=== PATIENT | female | born 1945 | race Caucasian/White ===

== ENCOUNTER → 2024-05-17 10:34 | Outpatient (REF) | payer MEDICARE, OTHER, SELFPAY ==
[2024-05-17 11:58] LABS: Free T4 1.14 ng/dl (0.78-2.19)
[2024-05-17 12:12] LABS: TSH 1.02 uIU/ml (0.47-4.68)
== END ==
LOC: OLABWPC 10:34
PROVIDERS: ATTENDING PHYSICIAN Internal Medicine Endocrinology, Diabetes & Metabolism
DX: E03.9 Hypothyroidism, unspecified (principal)
CPT/HCPCS: 36415; 84439; 84443

== ENCOUNTER 2024-07-20 03:33 | Emergency (ER) | payer MEDICARE, OTHER, SELFPAY ==
[2024-07-20 03:36] VITALS: BP 109/71
[2024-07-20 03:43] VITALS: BMI 29.9
[2024-07-20 04:00] VITALS: BP 105/51
--- NOTE | 2024-07-20 04:50 | ED.GENMED ---
History of Present Illness
General
Chief Complaint: Bowel Problem
Source: patient and [facility]ci
Exam Limitations: none
Time Seen by Provider: 07/20/24 04:25
History of Present Illness
History of Present Illness:
This is a 79-year-old woman who resides at assisted living facility. She has history of intermittent constipation and complains of severe constipation, passing last bowel movement perhaps 3 days ago. This morning she developed lower abdominal
discomfort, pressure as well as significant rectal pressure with inability to pass a bowel movement. She denies nausea nor vomiting, no fever no chills, no difficulty urinating, no dysuria nor urgency nor urinary frequency.
She admits to similar symptoms with previous episodes of constipation.
Past History
Past History
ED Past Medical History: Cancer (thyroid), Hypothyroidism, Psychiatric (a/d, pannic attacks) and Other (OA, constipation)
ED Past Surgical History: Tonsilectomy and Other (thyroidectomy)
Social History
Tobacco: Non-smoker
Alcohol: None
Personal:
Living: assisted living
Employment: Retired
Family History
Family History: Other (Noncontributory)
Phy Exam
Physical Exam
Physical Exam:
GENERAL: 79-year-old woman appears her stated age, awake and alert, appears in mild distress, lying on her right side. Easily communicative. Vital signs within normal limits.
EYE: anicteric
NECK: Supple, nontender, no meningismus, no significant adenopathy.
ENT: oral mucosa is moist. No rhinorrhea.
CARDIAC: Regular rate and rhythm. no murmur.
LUNGS: Clear breath sounds bilaterally, no acute respiratory distress, no wheezes/rales/rhonchi
ABDOMEN: Soft, nondistended, mild tenderness with deep palpation only suprapubic region, no palpable masses, no r/g, no cvat. normoactive BS. Rectal exam reveals firm marble-like stool within the upper rectum. Heme-negative. Unable to digitally
disimpact.
NEUROLOGICAL: Alert and oriented x3, no focal neuro deficits.
SKIN: Warm and dry, normal color, skin intact. No rash.
MUSCULOSKELETAL: No C/C/E. peripheral pulses are full and equal b/l. No palpable tenderness.
PSYCH: Normal and appropriate interaction.
Course
Orders/Labs/Results
Orders:
Orders
07/20/24 04:21
Abdomen Xray - 1 View [CR Abdomen - 1 View] Urgent
Comment:
Reason For Exam: constipation
07/20/24 04:49
Enema- Treatment ONCE
Type: Milk of Molasses
Vital Signs
Initial and Last Documented VS:
Initial Vital Signs
Temp Pulse BP Pulse Ox
98.6 F 76 109/71 98
07/20/24 03:36 07/20/24 03:36 07/20/24 03:36 07/20/24 03:36
Last Documented Vital Signs
Temp Pulse BP Pulse Ox
98.6 F 76 105/51 99
07/20/24 03:36 07/20/24 03:36 07/20/24 04:00 07/20/24 04:30
MDM/Problems Addressed
Differential Diagnosis Includes:
Concern for recurrent constipation, other consideration is bowel obstruction.
Will check abdominal x-ray and if noted to be constipated will trial an enema.
Unsuccessful with digital disimpaction, firm/hard stool is too high in the rectum.
*Radiology
Radiology exam reviewed: preliminary read by ED provider (X-ray shows moderate firm stool within the rectum. No evidence of obstruction.)
*Pulse Oximetry
Patient hypoxic: no
*Critical Care Note
Total Time (30-74mins, 75-104mins- exclusive of procedures): Not Applicable
Update Note
Update Note:
06:40
After receiving an enema patient has passed a large firm stool with relief of abdominal pain, relief of rectal pressure.
Abdomen is soft without vertebral tenderness.
She is prescribed MiraLAX for as needed use. Recommend she take this on a daily basis.
Will discharge back to [facility] for continued care.
ED Attending Note
-
Portions of this chart may have been created with voice recognition software.� Occasional wrong word or��sound alike� substitutions may have occurred due to the inherent limitations of voice recognition software.
Discharge Plan
Departure
Patient Disposition: Custodial/SNF
Date of Disposition: 07/20/24
Time of Disposition: 06:42
Patient with high blood pressure during this ER visit?: No
Condition: Good
Discharge Problem:
Fecal impaction in rectum
Instructions: Constipation, Adult (DC), Fecal Impaction (DC)
Prescriptions:
No Action
carisoprodol [Soma] 350 MG tablet
350 mg PO PRN PRN (Reason: pain)
levothyroxine [Levoxyl] 100 MCG tablet
100 mcg PO DAILY
lorazepam 0.5 MG tablet
0.5 mg PO DAILYPRN PRN (Reason: amxiety)
docusate sodium 100 MG capsule
100 mg PO DAILYPRN PRN (Reason: constipation)
fluoxetine 20 MG capsule
20 mg PO BID
alprazolam 0.25 MG tablet
0.25 mg PO Q4HPRN PRN (Reason: anxiety)
Referrals:
Puneet Deras MD [Family Provider] - Call in 1-3 days for appt
Activity Restrictions/Additional Instructions:
Resume MiraLAX and take this on a daily basis.
Interventions
Interventions:
*Risk Screen - Suicide Last Done: 07/20/24 03:36
*General Assessment Last Done: 07/20/24 03:44
*Neglect/Abuse Screening Last Done: 07/20/24 03:45
ED- Fall Risk Assessment Last Done: 07/20/24 03:45
*ED COVID-19 Vaccine History Last Done: 07/20/24 03:44
NP-Qgnnjg-Setpqqrjer Assessment Last Done: 07/20/24 03:50
Discharge Date and Time
Print Language: DANISH
[2024-07-20 08:25] VITALS: BP 113/74
[2024-07-20] MEDS: ATIVAN 0.5 MG PO (08:47)
== END 2024-07-20 09:18 ==
LOC: EMR 03:33
PROVIDERS: EMERGENCY PHYSICIAN Emergency Medicine; FAMILY PHYSICIAN Internal Medicine
DX: K56.41 Fecal impaction (principal); R10.30 Lower abdominal pain, unspecified; F41.0 Panic disorder [episodic paroxysmal anxiety]; M19.90 Unspecified osteoarthritis, unspecified site; E89.0 Postprocedural hypothyroidism; Z85.850 Personal history of malignant neoplasm of thyroid; Z91.041 Radiographic dye allergy status
CPT/HCPCS: 99283; 51798; 74018

== ENCOUNTER → 2024-08-16 10:15 | Outpatient (REF) | payer MEDICARE, OTHER, SELFPAY ==
[2024-08-16 12:29] LABS: Blood Urea Nitrogen 27 mg/dl (7-17); Calcium 11.3 mg/dl (8.4-10.2); Carbon Dioxide 27 mmol/L (22-30); Chloride 101 mmol/L (98-107); Glucose 107 mg/dl (70-99); Potassium 4.2 mmol/L (3.5-5.1); Sodium 137 mmol/L (135-145); eGFR 51.43
== END ==
LOC: OLABWPC 10:15
PROVIDERS: ATTENDING PHYSICIAN Nurse Practitioner Family
DX: E78.2 Mixed hyperlipidemia (principal); E03.9 Hypothyroidism, unspecified
CPT/HCPCS: 36415; 80048

== ENCOUNTER → 2025-05-28 10:25 | Outpatient (REF) | payer MEDICARE, OTHER, SELFPAY ==
[2025-05-28 11:09] LABS: Blood Urea Nitrogen 18 mg/dl (7-17); Calcium 10.2 mg/dl (8.4-10.2); Carbon Dioxide 28 mmol/L (22-30); Chloride 103 mmol/L (98-107); Glucose 83 mg/dl (70-99); Potassium 4.0 mmol/L (3.5-5.1); Sodium 138 mmol/L (135-145); eGFR 51.43
[2025-05-28 11:22] LABS: Hematocrit 41.3 % (37.0-47.0); Hemoglobin 13.5 g/dL (12.0-16.0); Mean Corp Hgb Conc. 32.7 g/dL (33.0-37.0); Mean Corpuscular Volume 87.7 fL (81.0-99.0); Nucleated Red Blood Cells % 0 %; Platelet Count 231 10^3/uL (130-400); Red Cell Dist. Width 13.4 % (11.5-14.5)
[2025-05-28 11:40] LABS: TSH 4.12 uIU/ml (0.47-4.68)
== END ==
LOC: OLABWPC 10:25
PROVIDERS: ATTENDING PHYSICIAN Internal Medicine
DX: E03.9 Hypothyroidism, unspecified (principal); Z85.850 Personal history of malignant neoplasm of thyroid; E78.2 Mixed hyperlipidemia
CPT/HCPCS: 36415; 80048; 84443; 85025

== ENCOUNTER 2025-06-04 07:48 | Emergency (ER) | payer MEDICARE, OTHER, SELFPAY ==
[2025-06-04] VITALS (9 sets, daily range): BP systolic 95–157; BP diastolic 74–82; BMI 32.0
[2025-06-04 08:13] LABS: Hematocrit 41.5 % (37.0-47.0); Hemoglobin 13.9 g/dL (12.0-16.0); Mean Corp Hgb Conc. 33.5 g/dL (33.0-37.0); Mean Corpuscular Volume 84.5 fL (81.0-99.0); Nucleated Red Blood Cells % 0 %; Platelet Count 242 10^3/uL (130-400); Red Cell Dist. Width 13.5 % (11.5-14.5)
[2025-06-04 08:31] LABS: ALT (SGPT) 26 U/L (0-35); AST (SGOT) 25 U/L (14-36); Albumin 4.5 g/dl (3.5-5.0); Alkaline Phosphatase 73 U/L (38-126); Blood Urea Nitrogen 20 mg/dl (7-17); Calcium 11.2 mg/dl (8.4-10.2); Carbon Dioxide 27 mmol/L (22-30); Chloride 103 mmol/L (98-107); Glucose 104 mg/dl (70-99); Lipase 114 U/L (23-300); Potassium 4.2 mmol/L (3.5-5.1); Sodium 138 mmol/L (135-145); Total Protein 6.9 g/dl (6.3-8.2); eGFR 46.33
--- NOTE | 2025-06-04 09:14 | ED.GENMED ---
History of Present Illness
General
Chief Complaint: Anxiety
Source: patient and spouse
Time Seen by Provider: 06/04/25 09:13
Nursing documentation reviewed up to this point in time: agreed with
History of Present Illness
History of Present Illness:
79 yo female from [facility], with h/o diverticulitis, thyroidectomy for CA, Anxiety, Panic disorder, depression presents via EMS. In room on initial exam pt stating 'I don't know why I'm so sick...I'm so confused...I feel sick to my
stomach...I hurt all over.' Tremulous, tearful, oriented to place, name year, cannot state month or president. Admits to feeling nauseous and having chest tightness. Denies SOB, abd pain. Denies UTI symptoms. Denies headache.
Pt stating 'I don't know' where her is, can't remember if she came by ambulance or not. Can't remember her address or 's phone number, states they recently moved.
Spoke with who stated 'she gets like this, she takes some anxiety pills in the morning.' Some days she's very good and some days are like this.' She is forgetting things, she starts crying, the [[facility]]staff gives her stuff.' 'We sleep in
separate bedrooms and she came in my bedroom this morning saying 'I don't want you here and she was flipped out.'
She could not remember whether or not she took her pills. She gets 'pain from her throat all the way down to her bellybutton, like an antacid thing that really bothers here.' Reports that she gets up frequently in the middle of the night to sit up
due to this.
Past History
Past History
ED Past Medical History: Cancer (thyroid), Hypothyroidism, Psychiatric (a/d, panic attacks) and Other (OA, constipation)
ED Past Surgical History: Tonsilectomy and Other (thyroidectomy)
Social History
Tobacco: Non-smoker
Alcohol: None
Personal:
Living: assisted living
Employment: Retired
Family History
Family History: Other (Noncontributory)
Review of Systems
Review of Systems
Allergies reviewed?: Yes
All Other Systems: ROS reviewed and negative except as documented in HPI and ROS
Phy Exam
Physical Exam
Physical Exam:
GENERAL: No acute distress. A&Ox2. oriented to place, name year, cannot state month or president. Cannot remember how she got here
CONSTITUTIONAL: Afebrile.
EYES: clear, conjunctivae normal
ENMT: moist mucus membranes, Pharynx nl
RESPIRATORY: Regular respirations, nonlabored, lungs clear.
CARDIOVASCULAR: Regular rate and rhythm, no murmurs, no rubs.
GI: Soft, nontender, normal BS
MUSCULOSKELETAL: Moves with ease. Well perfused. No edema
SKIN: Warm, dry, pink
PSYCH: Anxious, tearful mood and affect. Well kept, interactive.
NEUROLOGIC: Awake, alert and oriented x 2. No focal neurological deficits
Course
Orders/Labs/Results
Orders:
Orders
06/04/25 07:58
Complete Blood Count/With Diff Urgent
Comprehensive Metabolic Panel Urgent
Free T4 Urgent
Lipase Urgent
TSH Reflex To Free T4 Urgent
06/04/25 08:53
Add On- LAB Urgent
Tests Added?: TSH reflex T4
06/04/25 09:24
Electrocardiogram (*1) Urgent
Reason for Study: Chest Pain
EKG- Treatment ONCE
06/04/25 09:59
Crisis Consult Urgent
Reason for Consult: anxiety, tearful, forgetful
06/04/25 11:15
Troponin I Urgent
Urinalysis Reflex To Culture Urgent
Date Specimen was Collected: 06/04/25
Time Specimen was Collected: 11:13
Urine Microscopic Reflex Cult Urgent
06/04/25 12:17
CT Abd/pel Without Iv Or Oral Urgent
Comment:
Reason For Exam: hematuria, abd pain, dementia
06/04/25 13:28
Mag Hydrox/Al Hydrox/Simeth [Maalox] 30 ml PO NOW STA
Pantoprazole [Protonix IV] 80 mg IV NOW STA
Abnormal Lab Results
06/04/25 06/04/25
07:58 11:15
Absolute Monos (auto) 0.7 H 10^3/uL
(0.1-0.6)
Monocytes % 13.6 H %
(1.7-9.3)
BUN 20 H mg/dl
(7-17)
Creatinine 1.2 H mg/dL
(0.6-1.0)
Glucose 104 H mg/dl
(70-99)
Calcium 11.2 H mg/dl
(8.4-10.2)
TSH (Reflex) 7.61 H uIU/ml
(0.47-4.68)
Ur Occult Blood Reflex 3+ A
(Negative)
Urine RBC 7-10 A /HPF
(0-2)
Urine Bacteria (Reflex) Few A
(Negative)
06/04/25 07:58
06/04/25 07:58
Vital Signs
Initial and Last Documented VS:
Initial Vital Signs
Temp Pulse Resp BP Pulse Ox
97.8 F 67 24 134/77 98
06/04/25 07:53 06/04/25 07:53 06/04/25 07:53 06/04/25 07:53 06/04/25 07:53
Last Documented Vital Signs
Temp Pulse Resp BP Pulse Ox
97.8 F 82 20 157/78 99
06/04/25 07:53 06/04/25 11:00 06/04/25 11:00 06/04/25 11:00 06/04/25 11:01
Telemarketing Fundraiser consulted with Physician
Telemarketing Fundraiser consulted with physician?: Yes
Name of Physician Consulted: John
MDM/Problems Addressed
MDM/Problems Addressed:
79 yo female from [facility], with h/o diverticulitis, thyroidectomy for CA, Anxiety, Panic disorder, depression presents via EMS. In room on initial exam pt stating 'I don't know why I'm so sick...I'm so confused...I feel sick to my
stomach...I hurt all over.' Tremulous, tearful, oriented to place, name year, cannot state month or president. Admits to feeling nauseous and having chest tightness. Denies SOB, abd pain. Denies UTI symptoms. Denies headache.
Pt stating 'I don't know' where her is, can't remember if she came by ambulance or not. Can't remember her address or 's phone number, states they recently moved.
Spoke with who stated 'she gets like this, she takes some anxiety pills in the morning.' Some days she's very good and some days are like this.' She is forgetting things, she starts crying, the [[facility]]staff gives her stuff.' 'We sleep in
separate bedrooms and she came in my bedroom this morning saying 'I don't want you here and she was flipped out.'
She could not remember whether or not she took her pills. She gets 'pain from her throat all the way down to her bellybutton, like an antacid thing that really bothers here.' Reports that she gets up frequently in the middle of the night to sit up
due to this.
Afebrile, Tearful, forgetful
CBC, CMP with no clinically significant abnormality.
EKG: NSR
Crisis in
U/A : 3+ occult blood, 7-10 RBC otherwise unremarkable.
Due to dementia and 's concern we will obtain CT abdomen pelvis plain to rule out kidney stone
Abdomen benign
4:00 PM:
Pt is eating full lunch
home health care worker in. States she spoke with who stated his concern mainly was that she was having pain in throat and stomach. She never wants to come to the hospital and today she was asking to come.
Hx Out pt visits [facility] out pt. Jomar Mix Lyudmila-Psyche a couple of years ago. If she's calmer, he is comfortable taking her back home.
1:[address] abd/pelvis plain radiology report read: No hydronephrosis. No renal calculi. Moderate colonic stool burden. Small/moderate hiatal hernia.
After eating sandwich, apple sauce, apple juice, kervin hieu, pt asked RN for 'something for my indigestion.' Maalox and Protonix ordered
Crisis is waiting for to arrive as he mention lyudmila psyche and pt wants him here to discuss.
2:30 p.m.
TSH 7.61
Son is taking pt home. She is calm and pleasant.
Son will notify PCP of TSH
*Pulse Oximetry
SaO2: 98
Oxygen Mode of Delivery: Room air
Patient hypoxic: no
*EKG
EKG Intrepretation Date: 06/04/25
Interpretation: normal
Heart Rate: 77
Rate: normal
Rhythm: sinus
[place]: normal axis
Interval: normal interval
QRS Pattern: normal QRS
Ischemia: non-specific ST changes
*Critical Care Note
Total Time (30-74mins, 75-104mins- exclusive of procedures): Not Applicable
ED Attending Note
-
Portions of this chart may have been created with voice recognition software.� Occasional wrong word or��sound alike� substitutions may have occurred due to the inherent limitations of voice recognition software.
Discharge Plan
Departure
Patient Disposition: Home (Routine Discharge)
Date of Disposition: 06/04/25
Time of Disposition: 14:37
Patient with high blood pressure during this ER visit?: No
Condition: Good
Discharge Problem:
GERD (gastroesophageal reflux disease), Anxiety
Instructions: Anxiety, Adult (DC), Acid reflux and GERD in adults, Constipation in adults - ED (DC)
Prescriptions:
New
pantoprazole [Protonix] 40 mg tablet,delayed release (DR/EC)
40 mg PO DAILY Qty: 30 0RF
No Action
carisoprodol [Soma] 350 MG tablet
350 mg PO PRN PRN (Reason: pain)
levothyroxine [Levoxyl] 100 MCG tablet
100 mcg PO DAILY
lorazepam 0.5 MG tablet
0.5 mg PO DAILYPRN PRN (Reason: amxiety)
docusate sodium 100 MG capsule
100 mg PO DAILYPRN PRN (Reason: constipation)
fluoxetine 20 MG capsule
20 mg PO BID
alprazolam 0.25 MG tablet
0.25 mg PO Q4HPRN PRN (Reason: anxiety)
Referrals:
Adalberto Murphy MD [Active, Gastroenterology] - Next open appointment
UNKNOWN - PT NOT,INTERVIEWE [Family Provider]
Activity Restrictions/Additional Instructions:
As we discussed, take Protonix daily starting tomorrow you were given a dose here today. We are treating you for indigestion/reflux.
Call and make the appointment with his GI doctor as you may need an upper endoscopy
Eat a balance diet, drink plenty of water.
Avoid eating for one hour before bedtime to avoid reflux chest pains while you are laying down
Interventions
Interventions:
*Risk Screen - Suicide Last Done: 06/04/25 07:51
*General Assessment Last Done: 06/04/25 11:01
*Neglect/Abuse Screening Last Done: 06/04/25 11:01
*ED- Fall Risk Assessment Last Done: 06/04/25 11:01
*ED COVID-19 Vaccine History Last Done: 06/04/25 11:01
*ED Influenza Vaccine History Last Done: 06/04/25 11:01
ED-Psychological Assessment Last Done: 06/04/25 11:01
Discharge Date and Time
Print Language: LITHUANIAN
[2025-06-04 11:27] LABS: Urine Character Clear (Clear)
[2025-06-04 11:59] LABS: Troponin I < 0.012 ng/ml
[2025-06-04] MEDS: MAALOX 30 ML PO (13:33)
[2025-06-04] MEDS: PROTONIX IV 80 MG IV (13:33)
--- NOTE | 2025-06-04 14:55 | EDRN ---
Reviewed discharge instructions with patient and her son. Verbalized understanding. Taken to car in wheelchair.
== END 2025-06-04 15:00 | disposition home or self-care (01) ==
LOC: EMR 07:48
PROVIDERS: Emergency Medicine; Registered Nurse; EMERGENCY PHYSICIAN Emergency Medicine
DX: K21.9 Gastro-esophageal reflux disease without esophagitis (principal); F41.9 Anxiety disorder, unspecified; K44.9 Diaphragmatic hernia without obstruction or gangrene; F03.90 Unspecified dementia, unspecified severity, without behavioral disturbance, psychotic disturbance, mood disturbance, and anxiety; F32.A Depression, unspecified; E89.0 Postprocedural hypothyroidism; F41.0 Panic disorder [episodic paroxysmal anxiety]; M19.90 Unspecified osteoarthritis, unspecified site; Z85.850 Personal history of malignant neoplasm of thyroid
CPT/HCPCS: 99284; 96374; 74176; 80053; 81003; 81015; 83690; 84439; 84443; 84484; 85025; 93005

== ENCOUNTER 2025-06-15 16:45 | Emergency (ER) | payer MEDICARE, OTHER, SELFPAY ==
[2025-06-15 16:48] VITALS: BP 114/62
[2025-06-15 17:08] LABS: Hematocrit 41.3 % (37.0-47.0); Hemoglobin 13.6 g/dL (12.0-16.0); Mean Corp Hgb Conc. 32.9 g/dL (33.0-37.0); Mean Corpuscular Volume 86.6 fL (81.0-99.0); Nucleated Red Blood Cells % 0 %; Platelet Count 253 10^3/uL (130-400); Red Cell Dist. Width 13.8 % (11.5-14.5)
[2025-06-15 17:28] LABS: ALT (SGPT) 21 U/L (0-35); AST (SGOT) 23 U/L (14-36); Albumin 4.4 g/dl (3.5-5.0); Alkaline Phosphatase 58 U/L (38-126); Blood Urea Nitrogen 19 mg/dl (7-17); Calcium 10.0 mg/dl (8.4-10.2); Carbon Dioxide 25 mmol/L (22-30); Chloride 102 mmol/L (98-107); Glucose 89 mg/dl (70-99); Potassium 4.2 mmol/L (3.5-5.1); Sodium 134 mmol/L (135-145); Total Protein 6.8 g/dl (6.3-8.2); eGFR 46.33
[2025-06-15 17:38] LABS: Troponin I 0.022 ng/ml
[2025-06-15] MEDS: MAALOX 50 PO (19:22)
[2025-06-15 19:30] VITALS: BP 109/55
--- NOTE | 2025-06-15 19:49 | ED.GENMED ---
History of Present Illness
<Leanne Raymond, [employer] - Last Filed: 06/17/25 14:41>
General
Chief Complaint: Chest Pain
Source: patient
Exam Limitations: none
Time Seen by Provider: 06/15/25 19:14
Nursing documentation reviewed up to this point in time: agreed with
History of Present Illness
History of Present Illness:
79-year-old female from [facility] presents for significant burning pain up and down her chest 'from my stomach all the way up to my neck. She does have a history of GERD and is on pantoprazole 40 mg at bedtime for GERD that was ordered
on 01/29/2025 and actually is due to be discontinued today. She did have a dose today. She denies fever or chills, denies N/V/D, she does have intermittent constipation. She denies shortness of breath.
Past History
<Leanne Raymond, [employer] - Last Filed: 06/17/25 14:41>
Past History
ED Past Medical History: Cancer (thyroid), Hypothyroidism, Psychiatric (a/d, panic attacks) and Other (OA, constipation)
ED Past Surgical History: Tonsilectomy and Other (thyroidectomy)
Social History
Tobacco: Non-smoker
Alcohol: None
Personal:
Living: assisted living
Employment: Retired
Family History
Family History: Other (Noncontributory)
Review of Systems
<Leanne Raymond, [employer] - Last Filed: 06/17/25 14:41>
Review of Systems
Allergies reviewed?: Yes
All Other Systems: ROS reviewed and negative except as documented in HPI and ROS
Phy Exam
<Leanne Raymond, [employer] - Last Filed: 06/17/25 14:41>
Physical Exam
Physical Exam:
GENERAL: No acute distress. A&Ox3.
CONSTITUTIONAL: Afebrile.
EYES: clear, conjunctivae normal
ENMT: moist mucus membranes, Pharynx nl
RESPIRATORY: Regular respirations, nonlabored, lungs clear.
CARDIOVASCULAR: Regular rate and rhythm, no murmurs, no rubs.
GI: Soft, nontender, normal BS
MUSCULOSKELETAL: Moves with ease. Well perfused.
SKIN: Warm, dry, pink
PSYCH: Anxious mood and affect. Well kept, interactive and appropriate
NEUROLOGIC: Awake, alert and oriented. No focal neurological deficits
Scores
<CLAYTON Mims - Last Filed: 06/17/25 14:39>
Heart Score for Chest Pain Patients
STEMI patient?: Not applicable
Course
<Leanne Raymond [employer] - Last Filed: 06/17/25 14:41>
Orders/Labs/Results
Orders:
Orders
06/15/25 16:53
Electrocardiogram (*1) Urgent
Reason for Study: Chest Pain
EKG- Treatment ONCE
06/15/25 16:58
CMP [Comprehensive Metabolic Panel] Urgent
Complete Blood Count/With Diff Urgent
Troponin I Urgent
06/15/25 19:15
Mag Hydrox/Al Hydrox/Simeth [Maalox] 30 ml Phenobarb/Hyoscy/Atropine/Scop [] 10 ml Viscous Lidocaine 2% [Xylocaine Viscous Cup] 10 ml PO NOW
06/15/25 19:21
Phenobarb/Hyoscy/Atropine/Scop [] 10 ml .ROUTE .STK-MED ONE
06/15/25 19:22
Mag Hydrox/Al Hydrox/Simeth [Maalox] 30 ml .ROUTE .STK-MED ONE
Viscous Lidocaine 2% [Xylocaine Viscous Cup] 15 ml .ROUTE .STK-MED ONE
06/15/25 21:33
Lorazepam [Ativan] 0.5 mg PO NOW STA
06/15/25 21:40
Sucralfate [Carafate] 1 gram PO NOW STA
06/15/25 21:47
Crisis Consult Urgent
Reason for Consult: discharge planning, pt extremely anxious, tearful
Comment: Has been at [facility] in past for this, unable to DC home now
06/15/25 22:44
Troponin I Urgent
06/15/25 23:09
Diphenhydramine [Benadryl] 50 mg IV NOW STA
Hydrocortisone Sod Succinate [Solu-Cortef] 200 mg IV NOW STA
06/16/25 00:20
Ct Chest/Abd/Pel Angio W/Wo Iv Urgent
Reason For Exam: chest, abdominal pain
Abnormal Lab Results
06/15/25
16:58
MCHC 32.9 L g/dL
(33.0-37.0)
Monocytes % 11.6 H %
(1.7-9.3)
Sodium 134 L mmol/L
(135-145)
BUN 19 H mg/dl
(7-17)
Creatinine 1.2 H mg/dL
(0.6-1.0)
06/15/25 16:58
06/15/25 16:58
Vital Signs
Initial and Last Documented VS:
Initial Vital Signs
Temp Pulse Resp BP Pulse Ox
98.2 F 75 20 114/62 98
06/15/25 16:48 06/15/25 16:48 06/15/25 16:48 06/15/25 16:48 06/15/25 16:48
Last Documented Vital Signs
Temp Pulse Resp BP Pulse Ox
98.1 F 72 20 113/79 96
06/15/25 23:36 06/16/25 03:57 06/16/25 03:57 06/16/25 03:57 06/16/25 03:57
Assistant Reading Teacher consulted with Physician
Assistant Reading Teacher consulted with physician?: Yes
Name of Physician Consulted: Matteo
<Paco Stewart, DO - Last Filed: 06/15/25 23:47>
Orders/Labs/Results
Orders:
Orders
06/15/25 16:53
Electrocardiogram (*1) Urgent
Reason for Study: Chest Pain
EKG- Treatment ONCE
06/15/25 16:58
CMP [Comprehensive Metabolic Panel] Urgent
Complete Blood Count/With Diff Urgent
Troponin I Urgent
06/15/25 19:15
Mag Hydrox/Al Hydrox/Simeth [Maalox] 30 ml Phenobarb/Hyoscy/Atropine/Scop [] 10 ml Viscous Lidocaine 2% [Xylocaine Viscous Cup] 10 ml PO NOW
06/15/25 19:21
Phenobarb/Hyoscy/Atropine/Scop [] 10 ml .ROUTE .STK-MED ONE
06/15/25 19:22
Mag Hydrox/Al Hydrox/Simeth [Maalox] 30 ml .ROUTE .STK-MED ONE
Viscous Lidocaine 2% [Xylocaine Viscous Cup] 15 ml .ROUTE .STK-MED ONE
06/15/25 21:33
Lorazepam [Ativan] 0.5 mg PO NOW STA
06/15/25 21:40
Sucralfate [Carafate] 1 gram PO NOW STA
06/15/25 21:47
Crisis Consult Urgent
Reason for Consult: discharge planning, pt extremely anxious, tearful
Comment: Has been at [facility] in past for this, unable to DC home now
06/15/25 22:44
Troponin I Urgent
06/15/25 23:09
Diphenhydramine [Benadryl] 50 mg IV NOW STA
Hydrocortisone Sod Succinate [Solu-Cortef] 200 mg IV NOW STA
06/16/25 00:20
Ct Chest/Abd/Pel Angio W/Wo Iv Urgent
Reason For Exam: chest, abdominal pain
Abnormal Lab Results
06/15/25
16:58
MCHC 32.9 L g/dL
(33.0-37.0)
Monocytes % 11.6 H %
(1.7-9.3)
Sodium 134 L mmol/L
(135-145)
BUN 19 H mg/dl
(7-17)
Creatinine 1.2 H mg/dL
(0.6-1.0)
06/15/25 16:58
06/15/25 16:58
Vital Signs
Initial and Last Documented VS:
Initial Vital Signs
Temp Pulse Resp BP Pulse Ox
98.2 F 75 20 114/62 98
06/15/25 16:48 06/15/25 16:48 06/15/25 16:48 06/15/25 16:48 06/15/25 16:48
Last Documented Vital Signs
Temp Pulse Resp BP Pulse Ox
98.1 F 72 20 113/79 96
06/15/25 23:36 06/16/25 03:57 06/16/25 03:57 06/16/25 03:57 06/16/25 03:57
<CLAYTON Mims - Last Filed: 06/17/25 14:39>
Orders/Labs/Results
Orders:
Orders
06/15/25 16:53
Electrocardiogram (*1) Urgent
Reason for Study: Chest Pain
EKG- Treatment ONCE
06/15/25 16:58
CMP [Comprehensive Metabolic Panel] Urgent
Complete Blood Count/With Diff Urgent
Troponin I Urgent
06/15/25 19:15
Mag Hydrox/Al Hydrox/Simeth [Maalox] 30 ml Phenobarb/Hyoscy/Atropine/Scop [] 10 ml Viscous Lidocaine 2% [Xylocaine Viscous Cup] 10 ml PO NOW
06/15/25 19:21
Phenobarb/Hyoscy/Atropine/Scop [] 10 ml .ROUTE .STK-MED ONE
06/15/25 19:22
Mag Hydrox/Al Hydrox/Simeth [Maalox] 30 ml .ROUTE .STK-MED ONE
Viscous Lidocaine 2% [Xylocaine Viscous Cup] 15 ml .ROUTE .STK-MED ONE
06/15/25 21:33
Lorazepam [Ativan] 0.5 mg PO NOW STA
06/15/25 21:40
Sucralfate [Carafate] 1 gram PO NOW STA
06/15/25 21:47
Crisis Consult Urgent
Reason for Consult: discharge planning, pt extremely anxious, tearful
Comment: Has been at [facility] in past for this, unable to DC home now
06/15/25 22:44
Troponin I Urgent
06/15/25 23:09
Diphenhydramine [Benadryl] 50 mg IV NOW STA
Hydrocortisone Sod Succinate [Solu-Cortef] 200 mg IV NOW STA
06/16/25 00:20
Ct Chest/Abd/Pel Angio W/Wo Iv Urgent
Reason For Exam: chest, abdominal pain
Abnormal Lab Results
06/15/25
16:58
MCHC 32.9 L g/dL
(33.0-37.0)
Monocytes % 11.6 H %
(1.7-9.3)
Sodium 134 L mmol/L
(135-145)
BUN 19 H mg/dl
(7-17)
Creatinine 1.2 H mg/dL
(0.6-1.0)
06/15/25 16:58
06/15/25 16:58
Vital Signs
Initial and Last Documented VS:
Initial Vital Signs
Temp Pulse Resp BP Pulse Ox
98.2 F 75 20 114/62 98
06/15/25 16:48 11/14/25 16:48 06/15/25 16:48 06/15/25 16:48 06/15/25 16:48
Last Documented Vital Signs
Temp Pulse Resp BP Pulse Ox
98.1 F 72 20 113/79 96
06/15/25 23:36 06/16/25 03:57 06/16/25 03:57 06/16/25 03:57 06/16/25 03:57
<Leanne Raymond NP - Last Filed: 06/17/25 14:41>
MDM/Problems Addressed
Differential Diagnosis Includes:
GERD, [place]
MDM/Problems Addressed:
79-year-old female from [facility] presents for significant burning pain up and down her chest 'from my stomach all the way up to my neck. She does have a history of GERD and is on pantoprazole 40 mg at bedtime for GERD that was ordered
on 01/29/2025 and actually is due to be discontinued today. She did have a dose today. She denies fever or chills, denies N/V/D, she does have intermittent constipation. She denies shortness of breath.
CBC, CMP with no clinically significant abnormality, consistent with her baseline CKD
Troponin within normal limits
EKG sinus rhythm 75 bpm
8:00 p.m.
Pt states chest pain burning is much better
8:30 p.m.
Pt is crying, tremulous, 'I can't go home,' 'what if I wet myself...' 'I can't take care of myself...' Pt stuttering, can't say where she is, she is unable to ambulate independently due to severe anxiety 'I can't do it, I can't do it.' Was
ambulating earlier.
Given her regularly prescribed dose of Ativan 0.5 mg po
Spoke with son Nithin who informs me she has been admitted to [place] and other [facility] facilities in the past for her extreme anxiety.
Pt on phone with son, cannot hold a conversation, crying, 'I can't stand this burning (stomach)'. Son tells me she's been having significant reflux lately and it's really upsetting to her.
Carafate ordered.
Crisis Consulted.
I have taken care of this patient before, last time was 06/04, for very similar symptoms, she was evaluated by Crisis at that time and by the end of the unremarkable workup including a CT abdomen pelvis she was calm, eating and discharged to the care
of her son and
10:30 p.m.
Case discussed with Dr. Stewart who evaluated pt. and will assume care from this point.
Plan: Second Troponin, CT chest/abd/pelvis w IV contrast to r/o AAA
<Leanne Raymond NP - Last Filed: 06/17/25 14:41>
*Pulse Oximetry
SaO2: 98
Oxygen Mode of Delivery: Room air
Patient hypoxic: no
*EKG
EKG Intrepretation Date: 06/15/25
Interpretation: abnormal
Heart Rate: 75
Rate: normal
Rhythm: sinus
[place]: left axis deviation
Interval: normal interval
QRS Pattern: normal QRS
Ischemia: no ischemia
<CLAYTON Mims - Last Filed: 06/17/25 14:39>
*Critical Care Note
Total Time (30-74mins, 75-104mins- exclusive of procedures): Not Applicable
<CLAYTON Mims - Last Filed: 06/17/25 14:39>
Update Note
Update Note:
Received signout. Patient resting comfortably. CAT scan of the chest abdomen pelvis negative for dissection intramural hematoma no PE no acute findings in the abdomen. There is endometrial thickening of the or fluid in the endometrial canal would
recommend a nonemergent pelvic ultrasound will DC with instructions to follow-up
ED Attending Note
<Leanne V. Day, [employer] - Last Filed: 06/17/25 14:41>
-
Portions of this chart may have been created with voice recognition software.� Occasional wrong word or��sound alike� substitutions may have occurred due to the inherent limitations of voice recognition software.
<Paco Stewart DO - Last Filed: 06/15/25 23:47>
ED Attending Note
Patient seen and examined by attending physician: Yes
I performed the substantive portion of visit, reviewed & personally made and approve the management plan that is documented in note by myself or PAULETTE.: Yes
ED Attending Note:
71-year-old female who presents with pain and burning from her neck down to her suprapubic area. Does not radiate to her back but reports it is burning. Unable to tell me when it started. Patient is extremely anxious on arrival. Labs reveal
normal CBC and chemistries that are grossly unremarkable troponin x 2 unremarkable EKG shows left axis deviation with nonspecific changes and normal sinus rhythm at this point we will check an aortic dissection study if negative okay for discharge.
Treat with Carafate.
Discharge Plan
Departure
Patient Disposition: Home (Routine Discharge)
Date of Disposition: 06/16/25
Time of Disposition: 02:35
Patient with high blood pressure during this ER visit?: No
Discharge Problem:
Chest pain due to GERD, Atypical chest pain
Instructions: Chest Pain That Is Not Caused by the Heart (DC), Acid Reflux and GERD in Adults (DC)
Prescriptions:
New
pantoprazole [Protonix] 40 mg tablet,delayed release (DR/EC)
40 mg PO DAILY Qty: 20 0RF
sucralfate [Carafate] 1 gram tablet
1 g PO ACHS Qty: 30 0RF
No Action
carisoprodol [Soma] 350 MG tablet
350 mg PO PRN PRN (Reason: pain)
levothyroxine [Levoxyl] 100 MCG tablet
100 mcg PO DAILY
lorazepam 0.5 MG tablet
0.5 mg PO DAILYPRN PRN (Reason: amxiety)
docusate sodium 100 MG capsule
100 mg PO DAILYPRN PRN (Reason: constipation)
fluoxetine 20 MG capsule
20 mg PO BID
alprazolam 0.25 MG tablet
0.25 mg PO Q4HPRN PRN (Reason: anxiety)
pantoprazole [Protonix] 40 mg tablet,delayed release (DR/EC)
40 mg PO DAILY Qty: 30 0RF
Referrals:
Puneet Deras MD [Family Provider]
Mick Maya DO [Active, Gastroenterology] - Next open appointment
Activity Restrictions/Additional Instructions:
As we discussed, nothing worrisome in your workup here tonight.
You may take Maalox for the heartburn until you see your doctor on Wednesday for recheck.
I wrote you a prescription for Protonx 40 mg twenty tablets to get you through until you see the GI doctor.
Ask your doctor if you should continue the Protonix
I gave the web knitter at the GI doctor's office your contact information.
Someone from their office will call you for appointment, Wednesday or Wednesday to get you in soon as possible.
CAT scan was negative for any acute findings however it is recommended that you have a nonemergent pelvic ultrasound or an MRI of the pelvis as there is thickening or fluid in the endometrial canal. You may follow-up with your family doctor for
this.
Interventions
Interventions:
*Risk Screen - Suicide Last Done: 06/15/25 16:48
*General Assessment Last Done: 06/15/25 20:02
*Neglect/Abuse Screening Last Done: 06/15/25 16:48
*ED- Fall Risk Assessment Last Done: 06/15/25 20:02
*ED COVID-19 Vaccine History Last Done: 06/15/25 20:02
*ED Influenza Vaccine History Last Done: 06/15/25 20:02
*Nursing Disposition Last Done: 06/16/25 03:57
ED- Cardiac Assessment Last Done: 06/15/25 20:05
Discharge Date and Time
Discharge Date/Time: 06/16/25 04:00
Print Language: TELUGU
--- NOTE | 2025-06-15 19:55 | EDRN ---
Dheeraj DURANTNP in room w/pt. Pt found almost off of stretcher. Pt had relief from green grabber. Pt ambulated to BR w/ assist of 2.
[2025-06-15 20:01] VITALS: BMI 31.7
[2025-06-15 20:03] VITALS: BP 99/65
[2025-06-15] MEDS: ATIVAN 0.5 MG PO (21:40)
[2025-06-15 21:42] VITALS: BP 118/82
[2025-06-15] MEDS: CARAFATE 1 GRAM PO (21:58)
[2025-06-15 23:18] LABS: Troponin I 0.017 ng/ml
[2025-06-15] MEDS: SOLU-CORTEF 200 MG IV (23:22)
[2025-06-15] MEDS: BENADRYL 50 MG IV (23:23)
[2025-06-15 23:34] VITALS: BP 138/84
[2025-06-16 01:25] VITALS: BP 132/64
[2025-06-16 02:33] VITALS: BP 113/71
[2025-06-16 03:30] VITALS: BP 113/79
[2025-06-16 03:57] VITALS: BP 113/79
== END 2025-06-16 04:00 | disposition home or self-care (01) ==
LOC: EMR 16:45
PROVIDERS: Registered Nurse; Student in an Organized Health Care Education/Training Program; EMERGENCY PHYSICIAN Emergency Medicine; FAMILY PHYSICIAN Internal Medicine
DX: K21.9 Gastro-esophageal reflux disease without esophagitis (principal); F41.9 Anxiety disorder, unspecified; F32.A Depression, unspecified; F41.0 Panic disorder [episodic paroxysmal anxiety]; E89.0 Postprocedural hypothyroidism; M19.90 Unspecified osteoarthritis, unspecified site; Z85.850 Personal history of malignant neoplasm of thyroid
CPT/HCPCS: 99284; 96374; 96375; 71275; 74174; 80053; 84484; 85025; 93005; Q9967